=== PATIENT | female | born 1985 | race African-American/Black ===

== ENCOUNTER 2017-05-28 19:25 | Emergency (ER) | payer OTHER ==
[2017-05-28 21:34] VITALS: BP 140/69
== END 2017-05-28 21:34 | disposition home or self-care (01) ==
LOC: ED 19:25
DX: S93.601A Unspecified sprain of right foot, initial encounter (principal); Z88.0 Allergy status to penicillin; W26.8XXA Contact with other sharp object(s), not elsewhere classified, initial encounter; Y93.89 Activity, other specified; Y99.8 Other external cause status; Y92.89 Other specified places as the place of occurrence of the external cause

== ENCOUNTER 2017-12-23 17:38 | Emergency (ER) | payer MEDICAID ==
[~2017-12-23] VITALS: Ht 182.9 cm; Wt 97.5 kg
[2017-12-23 17:49] VITALS: BP 142/82; Ht 182.9 cm; Wt 97.5 kg
== END 2017-12-23 18:45 | disposition left against medical advice (07) ==
LOC: ED 17:38
DX: S76.911A Strain of unspecified muscles, fascia and tendons at thigh level, right thigh, initial encounter (principal); Z88.0 Allergy status to penicillin; X58.XXXA Exposure to other specified factors, initial encounter; Y93.89 Activity, other specified; Y92.89 Other specified places as the place of occurrence of the external cause; Y99.8 Other external cause status